=== PATIENT | female | born 1985 | race Two or more races ===

== ENCOUNTER 2019-08-07 16:35 | Emergency (ER) | payer SELFPAY ==
[~2019-08-07] VITALS: Ht 157.5 cm; Wt 70.3 kg
[2019-08-07 17:10] VITALS: BP 120/82
--- NOTE | 2019-08-07 17:38 | Emergency Room Report ---
History of Present Illness General Chief Complaint: General Complaint Source: EMS Present Illness HPI 34-year-old female with history of anxiety reports she used to be on Respinol only and has not taken for a while brought in by [facility] due to anxiety. Patient reports that she got into some trouble with [employer] and felt anxious. Denies any suicidal homicidal ideation. Reports that she used methamphetamine last night. Denies any other drug use. Denies any alcohol intake. Denies visual and auditory hallucination at this time. Denies chest pain, shortness of breath, headache and dizziness. Denies cough and congestion, fever and chills at this time. Denies abdominal pain, nausea vomiting diarrhea. Patient reports that she is interested in voluntarily going to psychiatric facilities. Patient is cooperative. Allergies: Coded Allergies: No Known Allergies (Unverified , 08/07/19) Patient History Past Medical History: see triage record Past Surgical History: none Family History: none Now: No Immunizations: UTD Reviewed Nursing Documentation: PMH: Agreed; PSxH: Agreed Nursing Documentation-PMH History Of Psychiatric Problem: Yes Review of Systems All Other Systems: negative except mentioned in HPI Physical Exam Vital Signs Date Time Temp Pulse Resp B/P (MAP) Pulse Ox O2 Delivery O2 Flow Rate FiO2 08/07/19 16:30 98.4 100 20 122/84 (97) 98 Room Air 08/07/19 17:10 99 Sp02 EP Interpretation: reviewed, normal General Appearance: alert/responsive, no apparent distress, GCS 15, non-toxic Head: atraumatic Eyes: PERRL, lids + conjunctiva normal ENT: hearing intact, no angioedema Neck: supple/symm/no masses, no meningismus Respiratory: effort normal, no wheezing, chest symmetrical Cardiovascular: regular rate, rhythm, no edema Gastrointestinal: no mass Musculoskeletal: gait & station normal Neurologic: normal inspection, oriented x3 Psychiatric: normal inspection, judgment & insight normal, no suicidal/ homicidal ideation Suicide Risk Assessment: Suicidal Ideation: No Pt's plan for suicide attempt: No Has means to complete attempt: No Skin: normal inspection Lymphatic: normal inspection Medical Decision Making PA Attestation All my diagnosis and treatment plans were reviewed ad discussed with my supervising physician Dr. Omer Diagnostic Impression: Primary Impression: Methamphetamine abuse Additional Impression: Anxiety ER Course 34-year-old female with history of anxiety reports she used to be on Respinol only and has not taken for a while brought in by [facility] due to anxiety. Patient reports that she got into some trouble with [employer] and felt anxious. Denies any suicidal homicidal ideation. Reports that she used methamphetamine last night. Denies any other drug use. Denies any alcohol intake. Denies visual and auditory hallucination at this time. Denies chest pain, shortness of breath, headache and dizziness. Denies cough and congestion, fever and chills at this time. Denies abdominal pain, nausea vomiting diarrhea. Patient reports that she is interested in voluntarily going to psychiatric facilities. Patient is cooperative. Ddx considered but are not limited to: generalized anxiety disorder, panic attack, depression with psychotic feature, bipolar disorder, drug overdose Vital signs: are WNL, pt. is afebrile H&PE are most consistent with: anxiety, methamphetamine abuse ORDERS: tox screen, urine , Risperdal 10 days supply ED INTERVENTIONS: Risperdal p.o. DISCHARGE: At this time pt. is stable for d/c to home. Will provide printed patient care instructions, and any necessary prescriptions. Care plan and follow up instructions have been discussed with the patient prior to discharge. Gave a list of mental health facilities for patient to follow-up with a psychiatrist. Patient reported that she felt much better after taking her respite all. She reports that she is no longer anxious. Advised to avoid using methamphetamine. Patient was evaluated in the context of the global COVID-19 pandemic, which necessitated consideration that the patient might be at risk for infection with the SARS-COV-2 virus that causes COVID-19. Institutional protocols and algorithms that pertain to the evaluation of patients at risk for COVID-19 are in a state of rapid change based on information relieved by multiple regulatory bodies including the CDC and the federal and state organizations. These policies and algorithms were followed during the patient's care in the ED. Last Vital Signs Date Time Temp Pulse Resp B/P (MAP) Pulse Ox O2 Delivery O2 Flow Rate FiO2 08/07/19 17:10 97 18 Room Air 99 08/07/19 17:10 98.4 120/82 98 Disposition: HOME, SELF-CARE Condition: Stable Scripts Risperidone* (RISPERDAL*) 0.5 Mg Tablet 0.5 MG ORAL DAILY for 10 Days, #10 TAB 0 Refills Prov: Pedrito Hernandez 08/07/19 Referrals: NOT CHOSEN IPA/,REFERRING (PCP) Patient Instructions: Generalized Anxiety Disorder, Stimulant Use Disorder- Methamphetamines Pedrito Hernandez Aug 07, 2019 17:38
[2019-08-07] MEDS ORDERED: RISPERDAL0.5 MG ORAL (17:46)
[2019-08-07 17:51] VITALS: BP 133/74
== END 2019-08-07 17:51 | disposition home or self-care (01) ==
LOC: EDBD 16:35 → EMR 17:17
DX: F15.10 Other stimulant abuse, uncomplicated (principal); F41.9 Anxiety disorder, unspecified
CPT/HCPCS: 80307; 81025; 99283